=== PATIENT | male | born 1950 | race Caucasian/White ===

== ENCOUNTER → 2017-08-30 | Day surgery (SDC) | payer BC ==
[2017-08-23 09:50] VITALS: Ht 177.8 cm; Wt 95.5 kg
[~2017-08-30] VITALS: Ht 177.8 cm; Wt 95.5 kg
[~2017-08-30] MED LIST: ALPR-411 PO; CETI10TA84 PO; LISI2.5T5 PO; METR-163 PO; MULT-506 PO; SODIUM CHLORIDE 0.9% 500ML 500 ML IV ONE
--- NOTE | 2017-08-30 13:18 | Endo History and Physical ---
History & Physical Date of Service: Aug 30, 2017. Chief Complaint: History of ulcerative colitis Referring Physician: Dr. Hasmukh Martinez History of Present Illness FS for pouch assessment; Past Surgical History Hx Cardiac Surgery: No Hx Internal Defibrillator: No Hx Pacemaker: No Hx Abdominal Surgery: Yes (COLON RESECTION/COLOSTOMY, J-POUCH CREATED, COLOSTOMY REVERSAL>J POUCH) Hx of Implantable Prosthesis: No Hx Post-Op Nausea and Vomiting: No Hx Cancer Surgery: No Hx Thoracic Surgery: No Hx Orthopedic: No Hx Urinary Tract Surgery: No Family History IBD Social History Smoking Status: Never Smoker Hx Substance Use: No Hx Alcohol Use: Yes (1-2 DRINKS DAILY (ON AVERAGE)) Allergies Coded Allergies: Ampicillin (Verified Allergy, Unknown, RASH, 08/23/17) Current Medications Reported Home Medications Medications Dose Route/Sig Max Daily Dose Days Date Category Xanax (Alprazolam) 0.5 Mg Tab 0.5 Mg PO Q6H PRN 08/23/17 Reported Zyrtec (Cetirizine HCl) 10 Mg Tab 10 Mg PO QAM 08/23/17 Reported Multivitamin (Multivitamins) Tab 1 Tab PO QAM 08/23/17 Reported Lisinopril 2.5 Mg Tab 2.5 Mg PO QAM 08/23/17 Reported Vital Signs Weight (Kilograms): 95.45 Height (Feet): 5 Height (Inches): 10 Date Time Temp Pulse Resp B/P (MAP) Pulse Ox O2 Delivery O2 Flow Rate FiO2 08/30/17 12:59 36.7 76 16 149/91 (110) 96 Room Air Physical Exam General Appearance: WD/WN, no apparent distress Respiratory/Chest: Auscultation: breath sounds normal Cardiovascular: Heart Auscultation: RRR Abdomen: Bowel Sounds: normal Inspection & Palpation: soft, non-distended, no tenderness, guarding & rebound Assessment and Plan FS with Bx
--- NOTE | 2017-08-30 13:57 | Discharge Instructions ---
Endoscopy Patient Instructions Date / Procedure(s) Performed Aug 30, 2017. Flex Sig Allergy Information Coded Allergies: Ampicillin (Verified Allergy, Unknown, RASH, 08/23/17) Discharge Date / Findings Aug 30, 2017. Medication Instructions Stopped Medication(s): Patient was told to hold his mvi. Restart Stopped Medication(s): Reported Home Medications Medications Dose Route/Sig Max Daily Dose Days Date Category Xanax (Alprazolam) 0.5 Mg Tab 0.5 Mg PO Q6H PRN 08/23/17 Reported Zyrtec (Cetirizine HCl) 10 Mg Tab 10 Mg PO QAM 08/23/17 Reported Multivitamin (Multivitamins) Tab 1 Tab PO QAM 08/23/17 Reported Lisinopril 2.5 Mg Tab 2.5 Mg PO QAM 08/23/17 Reported Reported Home Medications Medications Dose Route/Sig Max Daily Dose Days Date Category Xanax (Alprazolam) 0.5 Mg Tab 0.5 Mg PO Q6H PRN 08/23/17 Reported Zyrtec (Cetirizine HCl) 10 Mg Tab 10 Mg PO QAM 08/23/17 Reported Multivitamin (Multivitamins) Tab 1 Tab PO QAM 08/23/17 Reported Lisinopril 2.5 Mg Tab 2.5 Mg PO QAM 08/23/17 Reported Provider Instructions Activity Restrictions - No exercising or heavy lifting for 24 hours. - Do not drink alcohol the day of the procedure. - Do not drive a car or operate machinery until the day after the procedure. - Do not make any important decisions or sign important papers in 24 hours after the procedure. Following Day: - Return to full activity which may include returning to work/school. Diet Start your diet with liquids and light foods (jello, soup, juice, toast). Then eat your usual diet if not nauseated. Treatment For Common After Affects For mild abdominal pain, bloating, or excessive gas: - Rest - Eat lightly - Lie on right side Follow-Up Information Follow-up with Dr. Hasmukh Martinez as scheduled Anesthesia Information What You Should Know You have had a procedure that required some medicine to reduce anxiety and discomfort. This treatment is called moderate sedation. After receiving the treatment, you may be sleepy, but you will be able to breathe on your own. The effects of the treatment may last for several hours. Follow these instructions along with Activity/Diet recommendations noted above: * Do NOT do anything where dizziness or clumsiness would be dangerous. * Rest quietly at home today, then you can be up and about tomorrow. * Have a responsible person stay with you the rest of today. * You may have had an I.V. today. If so, you may take the dressing off later today. Recommendations Call your doctor if: * Trouble breathing * Continuous vomiting for more than 24 hours * Temperature above 101 degrees * Severe abdominal pain or bloating * Pain not relieved by pain medicine ordered * There is increased drainage or redness from any incision * A large amount of rectal bleeding greater than 2-3 tablespoons. (If you had a polyp/s removed or have hemorrhoids, a small amount of blood - from the rectum is to be expected.) * You have any unanswered questions or concerns. IN THE EVENT OF A SERIOUS EMERGENCY, GO TO THE NEAREST EMERGENCY ROOM Your discharge instructions were prepared by provider Chester Romero. Patient Instructions Signature Page [place] Patient (or Guardian) Signature/Date: I have read and understand the instructions given to me by my caregivers. Caregiver/RN/Doctor Signature/Date: The above-named patient and/or guardian has received patient instructions on this date. + Original Patient Signature Page (only) stays with chart. Please make copy for patient.
[2017-08-30 14:35] VITALS: BP 142/85; PULSE 70; TEMP 36.5; O2SAT 97
--- NOTE | 2017-08-30 15:18 | GI REPORT ---
Procedure Date: 08/30/2017 2:08 PM Procedure: Flexible Sigmoidoscopy Indications: Diarrhea, Personal history of ulcerative colitis, Post-operative assessment, Follow-up endoscopy after surgery Medicines: None Complications: No immediate complications. Estimated blood loss: Minimal. Estimated Blood Loss: Estimated blood loss was minimal. Procedure: Pre-Anesthesia Assessment: - Prior to the procedure, a History and Physical was performed, and patient medications and allergies were reviewed. The patient's tolerance of previous anesthesia was also reviewed. The risks and benefits of the procedure and the sedation options and risks were discussed with the patient. All questions were answered, and informed consent was obtained. Prior Anticoagulants: The patient has taken no previous anticoagulant or antiplatelet agents. ASA Grade Assessment: II - A patient with mild systemic disease. After reviewing the risks and benefits, the patient was deemed in satisfactory condition to undergo the procedure. After obtaining informed consent, the endoscope was passed under direct vision. Throughout the procedure, the patient's blood pressure, pulse, and oxygen saturations were monitored continuously. The Scope was introduced through the anus and advanced to the anus. The flexible sigmoidoscopy was accomplished without difficulty. The patient tolerated the procedure well. The quality of the bowel preparation was good. Findings: The perianal and digital rectal examinations were normal. Pertinent negatives include normal sphincter tone, no palpable rectal lesions and no anal lesion or abnormality was detected. The ileum appeared normal. There was evidence of a prior ileal pouch-anal anastomosis in the rectal pouch. This was patent and was characterized by healthy appearing mucosa and an intact staple line. The anastomosis was traversed. A localized area of minimal congestion/erythema without ulcer or friability congested and erythematous mucosa was found at the anus. Biopsies were taken with a cold forceps for histology. Verification of patient identification for the specimen was done by the physician and meteorological technician using the patient's name and medical record number. The anus appeared normal. Biopsies were taken with a cold forceps for histology. Estimated blood loss was minimal. Verification of patient identification for the specimen was done by the physician and meteorological technician using the patient's name and medical record number. The retroflexed view of the distal rectum and anal verge was normal and showed no anal or rectal abnormalities. Impression: - The terminal ileum is normal. - Patent ileal pouch-anal anastomosis, characterized by healthy appearing mucosa and an intact staple line. - Congested and erythematous mucosa at the anus above dentate line. Biopsied. - The anus is normal. Biopsied. Recommendation: - Discharge patient to home (ambulatory). - Await pathology results. - Return to referring physician as previously scheduled. - No evideince for pouchitis, ileitis or ulcerations. Minimal congestion and inflammation for 2-3 cm abovee anal opeing focally (non-circumferential) MD Chester Humphries MD 08/30/2017 3:18:01 PM This report has been signed electronically. Note Initiated On: 08/30/2017 2:08 PM I attest to the content of the Intraoperative Record and orders documented therein, exceptions below
== END | disposition home or self-care (01) ==
LOC: C.GI 12:41
PROVIDERS: ATTEND Internal Medicine Gastroenterology
DX: K52.9 Noninfective gastroenteritis and colitis, unspecified (principal); Z09 Encounter for follow-up examination after completed treatment for conditions other than malignant neoplasm; K62.89 Other specified diseases of anus and rectum; Z90.49 Acquired absence of other specified parts of digestive tract; Z93.3 Colostomy status; Z88.0 Allergy status to penicillin; Z79.899 Other long term (current) drug therapy